=== PATIENT | female | born 1970 | race Caucasian/White ===

== ENCOUNTER → 2023-11-24 10:57 | Outpatient (BNVA) | payer MEDICAID, SELFPAY | PROVIDERS: Visit Provider Physician Assistant | DX: M75.42 Impingement syndrome of left shoulder; M19.012 Primary osteoarthritis, left shoulder | CPT/HCPCS: 73030 ==

== ENCOUNTER → 2023-12-03 08:29 | Outpatient (BNVA) | payer MEDICAID, SELFPAY | PROVIDERS: Visit Provider Student in an Organized Health Care Education/Training Program | DX: M65.331 Trigger finger, right middle finger; R20.0 Anesthesia of skin; R20.2 Paresthesia of skin | CPT/HCPCS: 73130 ==

== ENCOUNTER → 2024-03-24 08:01 | Outpatient (BNVA) | payer MEDICAID, SELFPAY | PROVIDERS: PCP Nurse Practitioner; Visit Provider Physician Assistant | DX: G56.03 Carpal tunnel syndrome, bilateral upper limbs (principal) | CPT/HCPCS: 73130 ==

== ENCOUNTER 2024-03-29 07:44 | Outpatient (CLI) | payer MEDICAID, SELFPAY ==
--- NOTE | 2024-03-29 07:45 | MR_ITS ---
WS: [id number] MRI LEFT SHOULDER HISTORY: shoulder pain COMPARISON: Radiograph 11/24/2023 TECHNIQUE: Multiplanar sequences of the shoulder joint are submitted. Mild AC joint arthropathy. Very mild subacromial impingement. Very small amount of fluid in the subac romial bursa. No os acromion. Biceps tendon is present at the bicipital groove but is very small jin raymon. Numerous loose bodies of varying sizes are present and closely associated with the subscapularis tend on and the subscapularis recess. The largest loose body measures 1.7 cm. Loose bodies are causing mas s effect upon the subscapularis muscle and tendon. Otherwise mild edema in the rotator cuff muscles. No tear is identified. No marrow edema or fracture. Degenerative changes surrounding the humeral head . Mild osteophytosis with loss of cartilage. Similar degenerative changes are noted along the surface of the glenoid. No labral abnormality. MR/MR shoulder LT wo con* [id number] IMPRESSION: 1. Numerous loose bodies of varying sizes are present centered near the subsca pularis recess and along the subscapularis tendon. These range in size from sub centimeter to 1.7 cm. 2. No rotator cuff tear. 3. 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 There is loss of cartilage with irregular cortical surfaces. 4. Mild subacromial impingement.
== END 2024-03-29 07:45 | disposition home or self-care (01) ==
LOC: RAD 07:44
PROVIDERS: PCP Nurse Practitioner; Visit Provider Physician Assistant
DX: M19.012 Primary osteoarthritis, left shoulder (principal); M75.42 Impingement syndrome of left shoulder; M24.012 Loose body in left shoulder; M25.712 Osteophyte, left shoulder
CPT/HCPCS: 73221

== ENCOUNTER 2024-04-28 05:40 | Day surgery (SDC) | payer MEDICAID, SELFPAY ==
[2024-04-28] VITALS (7 sets, daily range): BP systolic 87–117; BP diastolic 53–78; PULSE 61–87; RESP 16–18; TEMP 36.1–36.3; O2SAT 95–97; BMI 23.3
[2024-04-28] MEDS: ketorolac 30 mg/mL INJ IVP (06:29)
[2024-04-28] MEDS: acetaminophen 1,000 MG/100 ML PIGGYBACK 400 MG IV (06:30)
[2024-04-28] MEDS: sodium chloride 0.9% 1,000 ML 30 ML IV (06:31)
[2024-04-28] MEDS: scopolamine 1.5 Patch 1 PATCH TRANSDERMA (06:36)
--- NOTE | 2024-04-28 06:54 | ANES.PREANE2 ---
Pre-Anesthetic Assessment Height/Weight: Height 1.78 m Weight 73.936 kg Temp Pulse Resp BP Pulse Ox O2 Del Method 97.4 F L 61 18 113/78 97 Room Air 04/28/24 06:00 04/28/24 06:00 04/28/24 06:00 04/28/24 06:36 04/28/24 06:00 04/28/24 06:13 Operation Date: 04/28/24 07:00 Proposed Procedures p Carpal Tunnel Release(Right) - See Kincaid DO Familial anesthetic complications: Woke up with hives after her tubal ligation 20 years ago, did not require an overnight stay Was Beta Alirio taken within 24 hours: N/A Was Clonidine taken within 24 hours: N/A Last intake: Intake Last Liquid Date 04/27/24 Last Liquid Time 20:00 Last Solid Date 04/27/24 Last Solid Time 20:00 Social Tobacco and No alcohol Exam alert, oriented x 3, clear to auscultation bilaterally and regular rate & rhythm Airway Mallampati: Class I Dentition: false Anesthetic Plan ASA status: 2 Anesthesia: MAC Risk of > 500 ml blood loss (7ml/kg in children): No Medications/Allergies Home Medications Medication Instructions Recorded Confirmed Last Taken Type buspirone 5 mg tablet 5 mg PO BID 11/24/23 04/27/24 04/28/24 History epinephrine 0.3 mg/0.3 mL 0.3 mg IM Q4H PRN Anaphylaxis 11/24/23 04/27/24 Unknown History injection, auto-injector hydroxyzine HCl 25 mg tablet 25 mg PO TID PRN nausea and 11/24/23 04/27/24 04/26/24 History vomiting naproxen 500 mg tablet,delayed 500 mg PO Q12H 11/24/23 04/27/24 Unknown History release (EC-Naproxen) ondansetron 4 mg disintegrating 4 mg PO Q8H 11/24/23 04/27/24 Unknown History tablet sumatriptan succinate 100 mg tablet See Rx Instructions PO .COMPLEX 11/24/23 04/27/24 Unknown History Night Splint, Right #1 ea 12/03/23 04/26/24 Unknown Rx ibuprofen 800 mg tablet 800 mg PO TID 2 weeks #42 tabs 03/24/24 04/27/24 Unknown Rx Allergies Allergy/AdvReac Type Severity Reaction Status Date / Time bee venom protein (honey bee) Allergy Severe ALGY-Anaphy Verified 04/27/24 15:52 laxis Penicillins Allergy Severe ALGY-Hives Verified 04/28/24 05:56 tramadol Allergy Intermediate ALGY-Hives Verified 04/27/24 15:52 Current Medications Generic Name Dose Route Start Last Admin Trade Name Freq PRN Reason Stop Dose Admin Sodium Chloride 1,000 mls @ 30 mls/hr 04/28/24 06:00 04/28/24 06:31 Sodium Chloride 0.9% IV 04/29/24 05:59 30 mls/hr .Q24H CARLEEN Administration PFSH Anesthesia Social History Smoking and tobacco/nicotine status: current every day tobacco/nicotine user Quit status (tobacco/nicotine): quit date established Second hand smoke exposure: Yes Alcohol intake: never Substance/Drug Use: never Adopted: No Caregiver/support person: Yes Lives independently: No Household members: spouse Housing: Apartment Marital status: Number of children: 5 Number of grandchildren: 9 Highest education level completed: Some College, No Degree service: Yes Current occupational status: unemployed Current occupational exposures/hazards: No Pets and animals: Yes Leisure activites: art Sexually active: Yes Do you think of yourself as: Straight/Heterosexual Current gender identity: Female Data Anesthesia Cardiac Studies: No Data to Display
--- NOTE | 2024-04-28 06:58 | W.PM.OPSFHP ---
Same Day Surgery H&P Indication for Procedure/HPI DATE OF PROCEDURE: April 28, 2024 CHIEF COMPLAINT/INDICATIONFOR SURGICAL PROCEDURE: Right carpal tunnel syndrome PREOP DIAGNOSIS: Right carpal tunnel syndrome PLANNED PROCEDURE: Operation Date: 04/28/24 07:00 Proposed Procedures p Carpal Tunnel Release(Right) - See Kincaid DO Medications/Allergies* Home Medications Medication Instructions Recorded Confirmed Type buspirone 5 mg tablet 5 mg PO BID 11/24/23 04/27/24 History epinephrine 0.3 mg/0.3 mL 0.3 mg IM Q4H PRN Anaphylaxis 11/24/23 04/27/24 History injection, auto-injector hydroxyzine HCl 25 mg tablet 25 mg PO TID PRN nausea and 11/24/23 04/27/24 History vomiting naproxen 500 mg tablet,delayed 500 mg PO Q12H 11/24/23 04/27/24 History release (EC-Naproxen) ondansetron 4 mg disintegrating 4 mg PO Q8H 11/24/23 04/27/24 History tablet sumatriptan succinate 100 mg tablet See Rx Instructions PO .COMPLEX 11/24/23 04/27/24 History Allergies/Adverse Reactions Allergy/AdvReac Type Severity Reaction Status Date / Time bee venom protein (honey bee) Allergy Severe ALGY-Anaphy Verified 04/27/24 15:52 laxis Penicillins Allergy Severe ALGY-Hives Verified 04/28/24 05:56 tramadol Allergy Intermediate ALGY-Hives Verified 04/27/24 15:52 Current Medications: Generic Name Dose Route Start Last Admin Trade Name Freq PRN Reason Stop Dose Admin Sodium Chloride 1,000 mls @ 30 mls/hr 04/28/24 06:00 04/28/24 06:31 Sodium Chloride 0.9% IV 04/29/24 05:59 30 mls/hr .Q24H CARLEEN Administration Pertinent History/Comorbid Conditions* Social History Smoking and tobacco/nicotine status: current every day tobacco/nicotine user Quit status (tobacco/nicotine): quit date established Second hand smoke exposure: Yes Alcohol intake: never Substance/Drug Use: never Adopted: No Caregiver/support person: Yes Lives independently: No Household members: spouse Housing: Apartment Marital status: Number of children: 5 Number of grandchildren: 9 Highest education level completed: Some College, No Degree service: Yes Current occupational status: unemployed Current occupational exposures/hazards: No Pets and animals: Yes Leisure activites: art Sexually active: Yes Do you think of yourself as: Straight/Heterosexual Current gender identity: Female Pertinent Exam Findings alert, oriented x 3, operative site marked and procedure specific exam findings Please refer to detailed orthopedic examination on 03/24/2024: Right Hand exam-positive Tinel's and positive Phalen's test. No thenar atrophy and No thenar muscle weakness. Full range of motion in fingers and wrist and fingers are warm and well-perfused with normal cap refill under 2 seconds. Radial pulse 2+, no intrinsic muscle weakness noted. Elbow exam-negative Tinel's test Recommendations Surgery/Procedure today Other Plans: Plan to proceed to the OR today for right carpal tunnel release surgery. Patient understands the ins and outs procedure the risk benefits complication alternatives surgery and through shared decision-making elects proceed with surgical intervention. All questions have been answered at this time. Coding Level of Care Code Acute Code for sejal Fwhyacinth
[2024-04-28] MEDS: clindamycin 900 MG/50 ML PREMIX 100 MG IV (06:59)
[2024-04-28] MEDS: lidocaine-epi 1% 20 mL INJ INJECTION (07:24)
[2024-04-28] MEDS: ROPivacaine 0.5% SDV 30 mL 150 MG INJECTION (07:24)
--- NOTE | 2024-04-28 07:37 | W.PM.BPON ---
Date of Procedure: 04/28/2024 Surgeon: See Kincaid DO Hearing Aid Repairer(s): None Procedure(s) performed: None Right carpal tunnel release Findings of the procedure(s): Patient found to have right carpal tunnel syndrome underwent procedure as planned without issues or complication Estimated blood loss: 1 Specimen(s) removed: None Post-operative diagnosis: Right carpal tunnel syndrome
--- NOTE | 2024-04-28 07:38 | P.OP_ITS ---
Operative Report Date of procedure: April 28, 2024 Surgeon: See Kincaid DO Procedure: Preop Diagnosis: Right Carpal Tunnel Syndrome Post-op diagnosis: Same Procedure done: 1. Right carpal tunnel release Surgeon: See Kincaid DO Anesthesia: MAC (Local) Estimated blood loss: 1 mL Tourniquet time 6 minutes IV fluids: See anesthesia record Complications: None Findings: See operative report narrative Condition: stable Disposition: same day Brief History: Patient is a pleasant 54 year-old female with right carpal tunnel syndrome. Patient has been worked up in the outpatient setting findings and physical exa mination consistent with this. Patient nerve conduction studies consistent with carpal tunnel syndrome. We detailed out patient's risk benefits complication alternatives with surgical and nonsurgical treatment options. Through shared decision making, patient agrees to proceed with surgical intervention of the left carpal tunnel release . Patient understands and agrees with current plan. All questions answered. Patient elects to proceed with surgical intervention with carpal tunnel release. Procedure: Patient seen and evaluated in the preoperative holding area. Consent was reviewed and signed with patient. Correct extremity was marked. Patient was seen evaluated by the anesthesia department once cleared for surgery was brought back to the operative suite. [facility] in supine position all bony prominences were well-padded patient properly secured to the bed. Right upper extremity was then placed onto an armboard. A nonsterile tourniquet was applied to the RIght upper arm. Patient underwent anesthesia per the anesthesia department. Patient's Right upper extremity was then prepped and draped in standard orthopedic fashion. Final timeout performed. Patient received appropriate preoperative antibiotics. Under sterile aseptic technique patient received local anesthesia over the preplanned carpal tunnel incision site. Esmarch was used to exsanguinate the Right upper extremity and tourniquet was insufflated to 250 mmHg. A standard mini open Right carpal tunnel incision was made. Starting distally at Rivera's cardinal line in line with the fourth ray extending proximally distal to the wrist crease centered over the carpal tunnel. Sharp scalpel incision was made through skin and subcutaneous tissue. Self-retaining retractor was placed and the palmar fascia was identified. This was then split longitudinally and direct visualization of the transverse carpal ligament was then made. I then utilizing scalpel feathered through the transverse carpal ligament until I entered the floor of the transverse carpal tunnel ligament into the carpal tunnel. Next I switched to dissection scissors and completed my release of the transverse carpal ligament distally with care to protect the recurrent motor branch. I completely released into the palmar fat and until no entrapment was noted distally. Care was made to protect the superficial palmar arch during my distal dissection. Next I utilized a nasal speculum placed on top of the transverse carpal ligament and utilize this to retract the subcutaneous fat and tissue and under direct loupe magnification was able to identify the transverse carpal ligament. Next I then protected the contents of the carpal tunnel and subsequently utilizing dissection scissors under loupe magnification completely released the transverse carpal ligament proximally into the antebrachial fascia. Care was made to protect the palmar cutaneous branch by keeping my scissors curved ulnarly. Once completely released, I then placed my [place] and had appropriate decompression of the carpal tunnel proximally as well as distally. I then inspected the contents of the carpal tunnel which showed an hourglass shape of the median nerve showing its compression. No masses were noted. Tendons appeared healthy. Wound was then thoroughly irrigated. Tourniquet deflated. Hemostasis satisfactory with bipolar electrocautery. I then closed the incision with interrupted nylon stitches. Xeroform 4 x 4's and a bulky soft dressing was applied. Patient was then awakened from anesthesia and taken to PACU in stable condition. Patient tolerated procedure without complications. Disposition: Patient taken to PACU in stable condition recovering well. Dressing clean dry and intact. Patient will receive appropriate discharge instructions as well as pain medication postoperatively. Patient to follow-up with me in the office in 2 weeks. They understand they may be weightbearing as tolerated to the right hand. Patient should keep incision clean dry and intact. Patient understands if any questions or concerns may contact the office.
--- NOTE | 2024-04-28 08:35 | ANE.PACU2 ---
Inpatient post-anesthesia follow up: Airway intact: Yes Vital signs: Temperature 97.0 F Pulse Rate 80 Respiratory Rate 16 Blood Pressure 115/73 Pulse Oximetry 96 Oxygen Delivery Me thod Room Air Oxygen Flow Rate Fraction of Inspir ed Oxygen Hydration adequate: Yes Nausea and vomiting: No Pain level: 1 Mental status: Baseline
== END 2024-04-28 08:35 | disposition home or self-care (01) ==
PROVIDERS: PCP Nurse Practitioner; Visit Provider Student in an Organized Health Care Education/Training Program
PROC: (CPT 64721; principal; 2024-04-28 07:00)
DX: G56.01 Carpal tunnel syndrome, right upper limb (principal); F17.200 Nicotine dependence, unspecified, uncomplicated
CPT/HCPCS: 64721; J0131; J1885; J2704; J2795; J3010; J3490; J7030

== ENCOUNTER → 2024-05-27 07:58 | Outpatient (BNVA) | payer MEDICAID, SELFPAY | PROVIDERS: PCP Nurse Practitioner; Visit Provider Student in an Organized Health Care Education/Training Program | DX: M75.42 Impingement syndrome of left shoulder; M24.012 Loose body in left shoulder; M19.012 Primary osteoarthritis, left shoulder | CPT/HCPCS: 77002 ==

== ENCOUNTER 2024-06-22 05:50 | Day surgery (SDC) | payer MEDICAID, SELFPAY ==
--- NOTE | 2024-06-21 16:30 | P.ANESASSM_ITS ---
Pre-Anesthetic Assessment Height/Weight: Height 5 ft 10 in Preop Diagnosis: Carpal tunnel syndrome Operation Date: 06/22/24 07:00 Proposed Procedures p Carpal Tunnel Release(Left) - See Kincaid DO Was Beta Alirio taken within 24 hours: N/A Was Clonidine taken within 24 hours: N/A Social Tobacco and No alcohol Exam alert, oriented x 3, clear to auscultation bilaterally and regular rate & rhythm Airway Submandibular: within normal limits Cervical ROM: within normal limits Mallampati: Class II Dentition: false Comments: Comments: Upper dentures, full bottom teeth. Denies any loose teeth Anesthetic Plan ASA status: 2 Anesthesia: MAC Other: No prior issues with anesthesia Patient recently had her other wrist done 2 months ago under MAC anesthetic without issues NPO since yesterday Current smoker Denies any cardiac issues Plan for MAC anesthetic with local via surgeon Medications/Allergies Home Medications Medication Instructions Recorded Confirmed Last Taken Type buspirone 5 mg tablet 5 mg PO BID 11/24/23 06/22/24 06/22/24 History epinephrine 0.3 mg/0.3 mL 0.3 mg IM Q4H PRN Anaphylaxis 11/24/23 06/21/24 Unknown History injection, auto-injector hydroxyzine HCl 25 mg tablet 25 mg PO TID 11/24/23 06/21/24 06/20/24 History ondansetron 4 mg disintegrating 4 mg PO Q8H 11/24/23 06/21/24 Unknown History tablet sumatriptan succinate 100 mg tablet See Rx Instructions PO .COMPLEX 11/24/23 06/21/24 Unknown History Night Splint, Right #1 ea 12/03/23 05/27/24 Unknown Rx ibuprofen 800 mg tablet 800 mg PO TID 2 weeks #42 tabs 03/24/24 06/21/24 Unknown Rx rosuvastatin 20 mg tablet 20 mg PO DAILY 06/21/24 06/21/24 06/21/24 History Allergies Allergy/AdvReac Type Severity Reaction Status Date / Time bee venom protein (honey bee) Allergy Severe ALGY-Anaphy Verified 06/22/24 06:07 laxis Penicillins Allergy Severe ALGY-Hives Verified 06/22/24 06:07 tramadol Allergy Intermediate ALGY-Hives Verified 06/22/24 06:07 COUNTS INCLUDE 234 BEDS AT THE [facility] Anesthesia Social History Smoking and tobacco/nicotine status: current every day tobacco/nicotine user Quit status (tobacco/nicotine): quit date established Second hand smoke exposure: Yes Alcohol intake: never Substance/Drug Use: never Adopted: No Caregiver/support person: Yes Lives independently: No Household members: spouse Housing: Apartment Marital status: Number of children: 5 Number of grandchildren: 9 Highest education level completed: Some College, No Degree service: Yes Current occupational status: unemployed Current occupational exposures/hazards: No Pets and animals: Yes Leisure activites: art Sexually active: Yes Do you think of yourself as: Straight/Heterosexual Current gender identity: Female Data Anesthesia Cardiac Studies: No Data to Display
[2024-06-22] MEDS: ketorolac 30 mg/mL INJ IVP (06:10)
[2024-06-22 06:14] VITALS: BMI 22.9
[2024-06-22] MEDS: scopolamine 1.5 Patch 1 PATCH TRANSDERMA (06:19)
--- NOTE | 2024-06-22 06:24 | SUR.PREOP ---
0615 pt states she can take cefazolin without any issues
[2024-06-22] MEDS: sodium chloride 0.9% 1,000 ML 30 ML IV (06:38)
[2024-06-22] MEDS: acetaminophen 1,000 MG/100 ML PIGGYBACK 400 MG IV (06:41)
--- NOTE | 2024-06-22 06:58 | W.PM.OPSFHP ---
Same Day Surgery H&P Indication for Procedure/HPI DATE OF PROCEDURE: June 22, 2024 CHIEF COMPLAINT/INDICATIONFOR SURGICAL PROCEDURE: Left carpal tunnel syndrome PREOP DIAGNOSIS: Left carpal tunnel syndrome PLANNED PROCEDURE: Operation Date: 06/22/24 07:00 Proposed Procedures p Carpal Tunnel Release(Left) - See Kincaid DO Medications/Allergies* Home Medications Medication Instructions Recorded Confirmed Type buspirone 5 mg tablet 5 mg PO BID 11/24/23 06/22/24 History epinephrine 0.3 mg/0.3 mL 0.3 mg IM Q4H PRN Anaphylaxis 11/24/23 06/21/24 History injection, auto-injector hydroxyzine HCl 25 mg tablet 25 mg PO TID 11/24/23 06/21/24 History ondansetron 4 mg disintegrating 4 mg PO Q8H 11/24/23 06/21/24 History tablet sumatriptan succinate 100 mg tablet See Rx Instructions PO .COMPLEX 11/24/23 06/21/24 History rosuvastatin 20 mg tablet 20 mg PO DAILY 06/21/24 06/21/24 History Allergies/Adverse Reactions Allergy/AdvReac Type Severity Reaction Status Date / Time bee venom protein (honey bee) Allergy Severe ALGY-Anaphy Verified 06/22/24 06:07 laxis Penicillins Allergy Severe ALGY-Hives Verified 06/22/24 06:07 tramadol Allergy Intermediate ALGY-Hives Verified 06/22/24 06:07 Current Medications: Generic Name Dose Route Start Last Admin Trade Name Freq PRN Reason Stop Dose Admin Sodium Chloride 1,000 mls @ 30 mls/hr 06/22/24 06:30 06/22/24 06:38 Sodium Chloride 0.9% IV 06/23/24 06:29 30 mls/hr .Q24H CARLEEN Administration Pertinent History/Comorbid Conditions* Social History Smoking and tobacco/nicotine status: current every day tobacco/nicotine user Quit status (tobacco/nicotine): quit date established Second hand smoke exposure: Yes Alcohol intake: never Substance/Drug Use: never Adopted: No Caregiver/support person: Yes Lives independently: No Household members: spouse Housing: Apartment Marital status: Number of children: 5 Number of grandchildren: 9 Highest education level completed: Some College, No Degree service: Yes Current occupational status: unemployed Current occupational exposures/hazards: No Pets and animals: Yes Leisure activites: art Sexually active: Yes Do you think of yourself as: Straight/Heterosexual Current gender identity: Female Pertinent Exam Findings alert, oriented x 3, operative site marked and procedure specific exam findings Please refer to detailed orthopedic examination on 05/11/2024 listed below: left Hand exam-positive Tinel's and positive Phalen's test. mild thenar atrophy and mild thenar muscle weakness. Full range of motion in fingers and wrist and fingers are warm and well-perfused with normal cap refill under 2 seconds. Radial pulse 2+, no intrinsic muscle weakness noted. Left Elbow exam-negative Tinel's test Right hand?surgical incision site is healing well no signs of infection noted. No wound dehiscence seen. Sutures are intact. No erythema, warmth or purulent drainage. Full range of motion in fingers and radial pulse 2+. Sensation intact. Normal cap refill under 2 seconds. A1 hesham tenderness of middle finger but no mechanical locking or catching. Recommendations Surgery/Procedure today Other Plans: Plan to proceed to the OR today for left carpal tunnel release. Patient understands the ins and outs procedure the risk benefits complication alternatives surgery and through shared decision-making elects proceed with surgical invention. All questions been answered at this time. She has had the right side down and been pleased with these results she is ready proceed with the other side. Coding Level of Care Code Acute Code for Chg Fwd
[2024-06-22] MEDS: clindamycin 900 MG/50 ML PREMIX 100 MG IV (07:11)
[2024-06-22] MEDS: ROPivacaine 0.5% SDV 30 mL 150 MG INJECTION (07:34)
[2024-06-22] MEDS: lidocaine-epi 1% 20 mL INJ INJECTION (07:34)
--- NOTE | 2024-06-22 07:44 | P.OP_ITS ---
Operative Report Date of procedure: June 22, 2024 Surgeon: See Kincaid DO Procedure: Preop Diagnosis: Left Carpal Tunnel Syndrome Post-op diagnosis: Same Procedure done: 1. Left carpal tunnel release Surgeon: See Kincaid DO Anesthesia: MAC (Local) Estimated blood loss: 2 mL Tourniquet time 7 minutes IV fluids: See anesthesia record Complications: None Findings: See operative report narrative Condition: stable Disposition: same day Brief History: Patient is a pleasant 54 year-old female with left carpal tunnel syndrome. Patient has been worked up in the outpatient setting findings and physical examination consistent with this. Patient nerve conduction studies consistent with carpal tunnel syndrome. We detailed out patient's risk benefits complication alternatives with surgical and nonsurgical treatment options. Through shared decision making, patient agrees to proceed with surgical intervention of the left carpal tunnel release . Patient understands and agrees with current plan. All questions answered. Patient elects to proceed with surgical intervention with carpal tunnel release. Procedure: Patient seen and evaluated in the preoperative holding area. Consent was reviewed and signed with patient. Correct extremity was marked. Patient was seen evaluated by the anesthesia department once cleared for surgery was brought back to the operative suite. Patient was kept on [facility] in supine position all bony prominences were well-padded patient properly secured to the bed. Left upper extremity was then placed onto an armboard. A nonsterile tourniquet was applied to the left upper arm. Patient underwent anesthesia per the anesthesia department. Patient's left upper extremity was then prepped and draped in standard orthopedic fashion. Final timeout performed. Patient receiv ed appropriate preoperative antibiotics. Under sterile aseptic technique patient received local anesthesia over the preplanned carpal tunnel incision site. Esmarch was used to exsanguinate the left upper extremity and tourniquet was insufflated to 250 mmHg. A standard mini open left carpal tunnel incision was made. Starting distally at Rivera's cardinal line in line with the fourth ray extending proximally distal to the wrist crease centered over the carpal tunnel. Sharp scalpel incision was made through skin and subcutaneous tissue. Self-retaining retractor was placed and the palmar fascia was identified. This was then split longitudinally and direct visualization of the transverse carpal ligament was then made. I then utilizing scalpel feathered through the transverse carpal ligament until I entered the floor of the transverse carpal tunnel ligament into the carpal tunnel. Next I switched to dissection scissors and completed my release of the transverse carpal ligament distally with care to protect the recurrent motor branch. I completely released into the palmar fat and until no entrapment was noted distally. Care was made to protect the superficial palmar arch during my distal dissection. Next, nasal speculum placed proximally for retraction of soft tissue on top of the Transverse carpal ligament. Next the contents of the carpal tunnel where protected and and subsequently utilizing dissection scissors under loupe magnification completely released the transverse carpal ligament proximally into the antebrachial fascia. Care was made to protect the palmar cutaneous branch by keeping my scissors curved ulnarly. Once completely released, I then placed my Mesa and had appropriate decompression of the carpal tunnel proximally as well as distally. I then inspected the contents of the carpal tunnel which showed an hourglass shape of the median nerve showing its compression. No masses were noted. Tendons appeared healthy. Wound was then thoroughly irri gated. Tourniquet deflated. Hemostasis satisfactory with bipolar electrocautery. I then closed the incision with interrupted nylon stitches. Xeroform 4 x 4's and a bulky soft dressing was applied to the left upper extremity. Patient was then awakened from anesthesia and taken to PACU in stable condition. Patient tolerated procedure without complications. Disposition: Patient taken to PACU in stable condition recovering well. Dressing clean dry and intact. Patient will receive appropriate discharge instructions as well as pain medication postoperatively. Patient to follow-up with me in the office in 2 weeks. They understand they may be weightbearing as tolerated to the left hand. Patient should keep incision clean dry and intact. Patient understands if any questions or concerns may contact the office.
--- NOTE | 2024-06-22 07:44 | W.PM.BPON ---
Date of Procedure: [June 22, 2024] Surgeon: [Dr. Kincaid DO] [employer] Professor(s): [N/A] Procedure(s) performed: [Left carpal tunnel release] Findings of the procedure(s): [Left carpal tunnel syndrome. Procedure went well and as planned] Estimated blood loss: [2 mL] Specimen(s) removed: [N/A] Post-operative diagnosis: [Left carpal tunnel syndrome]
[2024-06-22 07:53] VITALS: BP 88/62; PULSE 82; RESP 12; TEMP 36.7; O2SAT 98
--- NOTE | 2024-06-22 07:55 | P.PCN_ITS ---
PACU note Narrative: Patient is a 54-year-old female just underwent a left carpal tunnel release. Patient transferred to PACU in stable condition. Pain is well controlled. Dressing on hand is dry and in place. Patient's fingers are warm and well- perfused. Patient can wiggle fingers. normal cap refill under 2 seconds. Patient has normal elbow range of motion. Unable to assess sensation due to residual localized anesthetic. Exam: awake Disposition: discharged
[2024-06-22 07:58] VITALS: PULSE 71; RESP 20; O2SAT 96
[2024-06-22 08:03] VITALS: BP 97/69; PULSE 72; RESP 18; O2SAT 97
[2024-06-22 08:08] VITALS: BP 106/66; PULSE 72; RESP 20; TEMP 36.6; O2SAT 99
[2024-06-22 08:11] VITALS: BP 105/76; PULSE 71; RESP 19; TEMP 36.6; O2SAT 100
[2024-06-22 08:26] VITALS: BP 104/70; PULSE 74; RESP 17; O2SAT 99
--- NOTE | 2024-06-22 08:52 | SUR.PHASEII ---
0639 and pt states that they both want discharge medications sent to [facility] [place] instead of [facility] [place],Dr Kincaid and Ronny Kincaid(FERNANDO) are still in OR with another patient,pt and family notified
--- NOTE | 2024-06-22 09:22 | SUR.PREOP ---
0827 pt and spouse updated pn Dr. Kincaid and Ronny(his MA) still in OR,awaiting for prescription to be changed to our pharmacy here
--- NOTE | 2024-06-22 09:55 | ANE.PACU2 ---
Inpatient post-anesthesia follow up: Airway intact: Yes Vital signs: Temperature 98 F Pulse Rate 74 Respiratory Rate 17 Blood Pressure 104/70 Pulse Oximetry 99 Oxygen Delivery Me thod Room Air Oxygen Flow Rate Fraction of Inspir ed Oxygen Hydration adequate: Yes Nausea and vomiting: No Pain level: 1 Mental status: Baseline
== END 2024-06-22 09:55 | disposition home or self-care (01) ==
PROVIDERS: PCP Nurse Practitioner; Visit Provider Student in an Organized Health Care Education/Training Program
PROC: (CPT 64721; principal; 2024-06-22 07:00)
DX: G56.02 Carpal tunnel syndrome, left upper limb (principal); F17.200 Nicotine dependence, unspecified, uncomplicated
CPT/HCPCS: 64721; J0131; J0690; J1885; J2704; J2795; J3010; J3490; J7030

== ENCOUNTER → 2024-10-07 09:12 | Outpatient (BNVA) | payer MEDICAID, SELFPAY | PROVIDERS: PCP Nurse Practitioner; Visit Provider Student in an Organized Health Care Education/Training Program | DX: M75.42 Impingement syndrome of left shoulder (principal); M19.012 Primary osteoarthritis, left shoulder; M24.012 Loose body in left shoulder | CPT/HCPCS: 77002 ==

== ENCOUNTER → 2025-02-10 13:14 | Outpatient (BNVA) | payer MEDICAID, SELFPAY | PROVIDERS: PCP Nurse Practitioner; Visit Provider Student in an Organized Health Care Education/Training Program | DX: M75.42 Impingement syndrome of left shoulder (principal) | CPT/HCPCS: 77002 ==

== ENCOUNTER → 2025-06-09 08:25 | Outpatient (BNVA) | payer MEDICAID, SELFPAY | PROVIDERS: PCP Nurse Practitioner; Visit Provider Student in an Organized Health Care Education/Training Program | DX: M75.42 Impingement syndrome of left shoulder (principal); M24.012 Loose body in left shoulder; M19.012 Primary osteoarthritis, left shoulder; Z71.89 Other specified counseling | CPT/HCPCS: 77002 ==